=== PATIENT | male | born 1940 | race Caucasian/White ===

== ENCOUNTER 2017-03-16 01:51 | Emergency (ER) | payer MEDICARE ==
[~2017-03-16] VITALS: Ht 177.8 cm; Wt 67.6 kg
[~2017-03-16 01:51] MED LIST: ASP325T PO; ATRV10T PO; BNZ40T PO; CEPH500C PO; CHOL200035 PO; CHOL500014 GT; CIALIS PO; HYDR-34 PO; NEOM28.34 TP; OMEP20CA12 PO; OMG1KC PO; SILD100T PO; TEST1.25 TOP; UBID100C17 PO; UBID30CA13 PO
--- OUTSIDE RECORDS SUMMARY | 2017-03-16 01:57 | XMS REPORT | Continuity of Care Document ---
Author Author [facility] Organization [facility] Address Unknown Phone Unavailable Allergies Medications Problems Procedures Results Encounters ACCT No. Visit Date/Time Discharge Status Pt. Type Provider Facility Loc./Unit Complaint [id number] 04/03/2013 07:30:00 2012 14:04:00 DIS Outpatient [id number] 04/01/2013 12:24:00 2012 23:59:59 CLS Outpatient [id number] 01/02/2013 06:29:00 2012 11:05:00 DIS Outpatient [id number] 12/21/2012 08:03:00 2012 23:59:59 CLS Outpatient
[2017-03-16] MEDS ORDERED: NS IV 500 ML 500 ML IV ONE (02:13)
[2017-03-16 02:21] LABS: BASOPHILS % (AUTO) 0 % (0-10); EOSINOPHILS # (AUTO) 0.2 10^3/uL (0.0-0.3); EOSINOPHILS % (AUTO) 2 % (0-10); LYMPHOCYTES # (AUTO) 0.9 X 10^3 (1.0-4.0); LYMPHOCYTES % (AUTO) 9 % (12-44); MEAN CORPUSCULAR HEMOGLOBIN 33 PG (25-34); MEAN CORPUSCULAR HGB CONC 35 G/DL (32-36); MEAN CORPUSCULAR VOLUME 94 FL (80-99); MEAN PLATELET VOLUME 10.5 FL (7.4-10.4); MONOCYTES # (AUTO) 0.9 X 10^3 (0.0-1.0); MONOCYTES % (AUTO) 9 % (0-12); NEUTROPHILS # (AUTO) 8.2 X 10^3 (1.8-7.8); NEUTROPHILS % (AUTO) 80 % (42-75); PLATELET COUNT 204 10^3/uL (130-400); RED BLOOD COUNT 4.24 10^6/uL (4.35-5.85); RED CELL DISTRIBUTION WIDTH 13.4 % (10.0-14.5); WHITE BLOOD COUNT 10.3 10^3/uL (4.3-11.0)
[2017-03-16 02:41] LABS: ALANINE AMINOTRANSFERASE 32 U/L (0-55); ALBUMIN 4.3 GM/DL (3.2-4.5); ANION GAP 14 MMOL/L (5-14); ASPARTATE AMINO TRANSFERASE 30 U/L (5-34); BILIRUBIN,TOTAL 0.6 MG/DL (0.1-1.0); BLOOD UREA NITROGEN 23 MG/DL (7-18); BUN/CREATININE RATIO 21; CALCIUM 10.1 MG/DL (8.5-10.1); CARBON DIOXIDE 21 MMOL/L (21-32); CHLORIDE 103 MMOL/L (98-107); CREATININE SERUM 1.11 MG/DL (0.60-1.30); GFR ESTIMATED > 60; GLUCOSE 126 MG/DL (70-105); MAGNESIUM 2.4 MG/DL (1.8-2.4); SODIUM 138 MMOL/L (135-145); TOTAL PROTEIN 7.4 GM/DL (6.4-8.2)
[2017-03-16 02:42] LABS: BILIRUBIN,URINE NEGATIVE (NEGATIVE); KETONES,URINE NEGATIVE (NEGATIVE); LEUKOCYTE ESTERASE ,URINE 1+ (NEGATIVE); NITRITE,URINE NEGATIVE (NEGATIVE); PH,URINE 6 (5-9); PROTEIN,URINE 2+ (NEGATIVE); UROBILINOGEN,URINE NORMAL (NORMAL)
[2017-03-16 02:47] LABS: TROPONIN I < 0.30 NG/ML (<0.30)
[2017-03-16 02:50] LABS: SQUAMOUS EPITHELIAL CELL,UR RARE /HPF; WBC,URINE RARE /HPF
--- NOTE | 2017-03-16 02:53 | ED General ---
General Chief Complaint: Dizziness/Syncope Stated Complaint: SWEATING,LEG CRAMPS,LIGHT HEADED Nursing Triage Note: PT AMBULATED TO ROOM. PT STATES HE WOKE UP THIS MORNING TO GO TO THE BR AND FELT NAUSEOUS AND HAD THE CHILLS. Nursing Sepsis Screen: No Definite Risk Source of Information: Patient Exam Limitations: No Limitations History of Present Illness Time Seen by Provider: 01:53 Initial Comments This 68-year-old gentleman presents to the emergency room with complaints of general feeling of illness, leg cramps, chills, diaphoresis, and lightheadedness with near-syncope starting around 23:00. He is now feeling tired and weak. He has had no cough or dysuria. Denies vomiting or diarrhea. He does report having numerous tick bites within the last month. Allergies and Home Medications Allergies Coded Allergies: Codeine (Unverified Allergy, Severe, 06/06/06) acetaminophen (Unverified Allergy, Severe, 06/06/06) Diclofenac (Unverified Adverse Reaction, Unknown, 06/06/06) misoprostol (Unverified Adverse Reaction, Unknown, 06/06/06) Home Medications Aspirin 325 Mg Tab, 325 MG PO DAILY, (Reported) Atorvastatin Calcium 10 Mg Tablet, 10 MG PO DAILY, (Reported) Benazepril Hcl 40 Mg Tablet, 40 MG PO DAILY, (Reported) Cholecalciferol (Vitamin D3) 2,000 Unit Capsule, 2,000 UNIT PO DAILY, (Reported) Doxycycline Hyclate 100 Mg Tablet, 100 MG PO BID, #20 Prescribed by: MARY ANN BALDERAS on 03/16/17 0325 Hydrocodone Bit/Acetaminophen 1 Ea Tablet, 1-2 EA PO Q 4 - 6 HR PRN, (Reported) Omeprazole 20 Mg Capsule.dr, 20 MG PO DAILY, (Reported) Sildenafil Citrate 100 Mg Tablet, 100 MG PO DAILY PRN, (Reported) PRN ED Testosterone 1.25 Gm Gel.packet, 1.25 GM TOP DAILY, (Reported) Ubidecarenone 100 Mg Capsule, 100 MG PO DAILY, (Reported) [Cialis] , 20 MG PO DAILY PRN, (Reported) PRN ED Constitutional: see HPI EENTM: no symptoms reported Respiratory: short of breath (slight) Cardiovascular: see HPI Gastrointestinal: nausea (slight) Genitourinary: no symptoms reported Musculoskeletal: no symptoms reported Skin: no symptoms reported Psychiatric/Neurological: No Symptoms Reported Hematologic/Lymphatic: No Symptoms Reported Past Vashoix-Rjoyku-Paujig Hx Patient Social History Alcohol Use: Denies Use Recreational Drug Use: No Smoking Status: Current Everyday Smoker Type Used: Cigars 2nd Hand Smoke Exposure: No Recent Foreign Travel: No Contact w/Someone Who Travel: No Recent Infectious Disease Expo: No Recent Hopitalizations: No Physical Abuse: No Sexual Abuse: No Immunizations Up To Date Date of Pneumonia Vaccine: Feb 03, 2011 Date of Influenza Vaccine: Mar 25, 2013 Seasonal Allergies Seasonal Allergies: No Surgeries History of Surgeries: Yes Surgeries: Orthopedic (elbow, back, triceps) Respiratory History of Respiratory Disorde: No Cardiovascular History of Cardiac Disorders: Yes Cardiac Disorders: Hypertension Neurological History of Neurological Disord: No Genitourinary History of Genitourinary Disor: No Gastrointestinal History of Gastrointestinal Di: Yes Gastrointestinal Disorders: Hiatal Hernia Musculoskeletal History of Musculoskeletal Dis: Yes Musculoskeletal Disorders: Arthritis Endocrine History of Endocrine Disorders: No HEENT History of HEENT Disorders: No Cancer History of Cancer: No Psychosocial History of Psychiatric Problem: No Suicide Risk Score: 0 Integumentary History of Skin or Integumenta: No Blood Transfusions History of Blood Disorders: Yes Physical Exam Vital Signs Vital Sign - Last 12Hours 03/16/17 01:57 Temp 97.1 Pulse 85 Resp 20 B/P (MAP) 138/77 Pulse Ox 97 O2 Delivery Room Air Capillary Refill : Less Than 3 Seconds General Appearance: No Apparent Distress, WD/WN HEENT: PERRL/EOMI, Normal ENT Inspection, Pharynx Normal Neck: Normal Inspection Respiratory: Lungs Clear, Normal Breath Sounds, No Accessory Muscle Use, No Respiratory Distress Cardiovascular: Regular Rate, Rhythm, No Edema, No Murmur Gastrointestinal: Non Tender, Soft Extremity: Normal Inspection, No Pedal Edema Neurologic/Psychiatric: Alert, Oriented x3, No Motor/Sensory Deficits, Normal Mood/Affect, 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 Norm as Tested Skin: Normal Color, Warm/Dry Progress/Results/Core Measures Results/Orders Lab Results Laboratory Tests Test 03/16/17 02:11 03/16/17 02:37 Range/Units White Blood Count 10.3 4.3-11.0 10^3/uL Red Blood Count 4.24 L 4.35-5.85 10^6/uL Hemoglobin 14.1 13.3-17.7 G/DL Hematocrit 40 40-54 % Mean Corpuscular Volume 94 80-99 FL Mean Corpuscular Hemoglobin 33 25-34 PG Mean Corpuscular Hemoglobin Concent 35 32-36 G/DL Red Cell Distribution Width 13.4 10.0-14.5 % Platelet Count 204 130-400 10^3/uL Mean Platelet Volume 10.5 H 7.4-10.4 FL Neutrophils (%) (Auto) 80 H 42-75 % Lymphocytes (%) (Auto) 9 L 12-44 % Monocytes (%) (Auto) 9 0-12 % Eosinophils (%) (Auto) 2 0-10 % Basophils (%) (Auto) 0 0-10 % Neutrophils # (Auto) 8.2 H 1.8-7.8 X 10^3 Lymphocytes # (Auto) 0.9 L 1.0-4.0 X 10^3 Monocytes # (Auto) 0.9 0.0-1.0 X 10^3 Eosinophils # (Auto) 0.2 0.0-0.3 10^3/uL Basophils # (Auto) 0.0 0.0-0.1 10^3/uL Sodium Level 138 135-145 MMOL/L Potassium Level 4.0 3.6-5.0 MMOL/L Chloride Level 103 98-107 MMOL/L Carbon Dioxide Level 21 21-32 MMOL/L Anion Gap 14 5-14 MMOL/L Blood Urea Nitrogen 23 H 7-18 MG/DL Creatinine 1.11 0.60-1.30 MG/DL Estimat Glomerular Filtration Rate > 60 BUN/Creatinine Ratio 21 Glucose Level 126 H 70-105 MG/DL Calcium Level 10.1 8.5-10.1 MG/DL Magnesium Level 2.4 1.8-2.4 MG/DL Total Bilirubin 0.6 0.1-1.0 MG/DL Aspartate Amino Transf (AST/SGOT) 30 5-34 U/L Alanine Aminotransferase (ALT/SGPT) 32 0-55 U/L Alkaline Phosphatase 75 40-136 U/L Troponin I < 0.30 <0.30 NG/ML Total Protein 7.4 6.4-8.2 GM/DL Albumin 4.3 3.2-4.5 GM/DL Urine Color YELLOW Urine Clarity CLEAR Urine pH 6 5-9 Urine Specific Mcgrady 1.015 L 1.016-1.022 Urine Protein 2+ H NEGATIVE Urine Glucose (UA) NEGATIVE NEGATIVE Urine Ketones NEGATIVE NEGATIVE Urine Nitrite NEGATIVE NEGATIVE Urine Bilirubin NEGATIVE NEGATIVE Urine Urobilinogen NORMAL NORMAL MG/DL Urine Leukocyte Esterase 1+ H NEGATIVE Urine RBC (Auto) 1+ H NEGATIVE Urine RBC RARE /HPF Urine WBC RARE /HPF Urine Squamous Epithelial Cells RARE /HPF Urine Crystals NONE /LPF Urine Bacteria TRACE /HPF Urine Casts PRESENT /LPF Urine Hyaline Casts 2-5 H /LPF Urine Mucus SMALL H /LPF Urine Culture Indicated NO My Orders Orders - MARY ANN POWERS MD Cbc With Automated Diff (03/16/17 01:54) Comprehensive Metabolic Panel (03/16/17 01:54) Magnesium (03/16/17 01:54) Ua Culture If Indicated (03/16/17 01:54) Saline Lock/Iv-Start (03/16/17 01:54) Monitor-Rhythm Ecg Trace Only (03/16/17 01:54) Troponin I (03/16/17 02:13) Chest Pa/Lat (2 View) (03/16/17 02:13) Ekg Tracing (03/16/17 02:13) Ns Iv 500 Ml (Sodium Chloride 0.9%) (03/16/17 02:13) Doxycycline Hyclate Tablet (Vibramycin T (03/16/17 03:30) Medications Given in ED Current Medications Medications Dose Ordered Sig/Teo Route Start Time Stop Time Status Last Admin Dose Admin Doxycycline Hyclate 100 mg ONCE ONCE PO 03/16/17 03:30 03/16/17 03:31 DC 03/16/17 03:31 100 MG Sodium Chloride 500 ml @ 0 mls/hr Q0M ONCE IV 03/16/17 02:13 03/16/17 02:15 DC 03/16/17 02:37 500 MLS/HR Vital Signs/I&O Vital Sign - Last 12Hours 03/16/17 03/16/17 01:57 03:30 Temp 97.1 97.1 Pulse 85 85 Resp 20 20 B/P (MAP) 138/77 Pulse Ox 97 97 O2 Delivery Room Air Room Air Blood Pressure Mean: 97 Progress Note : Progress Note Workup was unremarkable. Patient is feeling better after receiving 500 mL normal saline bolus. Because of the symptoms in the context of numerous tick bites, patient wishes to start doxycycline. He was offered tick panel but declined because of cost. ECG Initial ECG Impression Date: Mar 16, 2017 Initial ECG Impression Time: 02:16 Initial ECG Rate: 76 Initial ECG Rhythm: Normal Sinus Initial ECG Intervals: Normal Initial ECG Impression: Normal Comment Normal sinus rhythm with no ST elevation or depression. No abnormal intervals or axis deviation. Diagnostic Imaging Diagonstic Imaging: Xray Plain Films/CT/US/NM/MRI: chest Comments Chest x-ray viewed by me and report not yet available. No acute abnormalities appreciated. Departure Impression Impression: Primary Impression: Chills Additional Impressions: Diaphoresis Lightheaded Tick bites Qualified Codes: W57.XXXA - Bitten or stung by nonvenomous insect and other nonvenomous arthropods, initial encounter Disposition: HOME, SELF-CARE Condition: Improved Departure-Patient Inst. Decision time for Depature: 03:22 Referrals: EULOGIO LEDBETTER MD (PCP/Family) Primary Care Physician Patient Instructions: NO INSTRUCTIONS GIVEN Add. Discharge Instructions: Drink plenty of clear liquids. Complete your antibiotic as prescribed. Return to care if symptoms worsen. Please note doxycycline may cause sun sensitivity. All discharge instructions reviewed with patient and/or family. Voiced understanding. Scripts Doxycycline Hyclate (Doxycycline Hyclate) 100 Mg Tablet 100 MG PO BID, #20 TAB Prov: MARY ANN POWERS MD 03/16/17 MARY ANN POWERS MD Mar 16, 2017 02:53
[2017-03-16] MEDS ORDERED: DOXY100T2 PO (03:25)
[2017-03-16 03:30] VITALS: BP 138/77
[2017-03-16] MEDS ORDERED: DOXYCYCLINE 100 MG (VIBRAMYCIN) TABLET PO ONE (03:30)
--- NOTE | 2017-03-16 07:23 | Diagnostic Imaging Report ---
INDICATION: Weakness EXAMINATION: Portable chest at 2:47 AM Heart size and pulmonary vascularity are normal. Lungs are clear. There are no effusions or pneumothoraces. IMPRESSION: Negative chest Dictated by: Dictated on workstation # [id number]
== END 2017-03-16 03:30 | disposition home or self-care (01) ==
LOC: EDUNIT# 01:51 → ER 01:53
DX: S80.861A Insect bite (nonvenomous), right lower leg, initial encounter (principal); S80.862A Insect bite (nonvenomous), left lower leg, initial encounter; R68.83 Chills (without fever); R42 Dizziness and giddiness; R61 Generalized hyperhidrosis; I10 Essential (primary) hypertension; F17.290 Nicotine dependence, other tobacco product, uncomplicated; Z79.82 Long term (current) use of aspirin; Z87.19 Personal history of other diseases of the digestive system; W57.XXXA Bitten or stung by nonvenomous insect and other nonvenomous arthropods, initial encounter
CPT/HCPCS: 36415; 71020; 80053; 81000; 83735; 84484; 85025; 93005; 93041

== ENCOUNTER 2017-04-21 16:39 | Day surgery (SDC) | payer MEDICARE ==
[~2017-04-21] VITALS: Ht 177.8 cm; Wt 64.5 kg
[~2017-04-21 16:39] MED LIST changes: +DOXY100T2 PO
[2017-04-21 17:13] LABS: BASOPHILS % (AUTO) 0 % (0-10); EOSINOPHILS % (AUTO) 0 % (0-10); LYMPHOCYTES # (AUTO) 0.8 X 10^3 (1.0-4.0); LYMPHOCYTES % (AUTO) 9 % (12-44); MEAN CORPUSCULAR HEMOGLOBIN 33 PG (25-34); MEAN CORPUSCULAR HGB CONC 34 G/DL (32-36); MEAN CORPUSCULAR VOLUME 95 FL (80-99); MEAN PLATELET VOLUME 10.1 FL (7.4-10.4); MONOCYTES # (AUTO) 0.3 X 10^3 (0.0-1.0); MONOCYTES % (AUTO) 3 % (0-12); NEUTROPHILS # (AUTO) 7.1 X 10^3 (1.8-7.8); NEUTROPHILS % (AUTO) 87 % (42-75); PLATELET COUNT 201 10^3/uL (130-400); RED BLOOD COUNT 4.14 10^6/uL (4.35-5.85); RED CELL DISTRIBUTION WIDTH 13.5 % (10.0-14.5); WHITE BLOOD COUNT 8.2 10^3/uL (4.3-11.0)
--- NOTE | 2017-04-21 17:15 | ED Chest Pain ---
General Stated Complaint: CHEST PAIN Source: patient Exam Limitations: no limitations History of Present Illness Time seen by provider: 17:11 Initial Comments The patient is a 76-year-old white male who presents with a chief complaint of chest pain. He reports that about 1615 he noted the onset of a rather heavy chest pain under the sternum. It did not radiate to the jaw for the shoulder. He has had a previous infarct some years ago. He takes an CHUCK inhibitor for hypertension and atorvastatin for cholesterol. Because of his previous experience he took a 324 aspirin before setting out for here. If I am to understand correctly he has never previously had a coronary angiogram. I believe he had a nuclear scan by his description. 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 He stated that he was up and down 3 times. In addition he cut some limbs to improve the sight lines. 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 Associated Symptoms: denies symptoms Allergies and Home Medications Allergies Coded Allergies: acetaminophen (Unverified Allergy, Severe, 06/06/06) codeine (Unverified Allergy, Severe, 06/06/06) diclofenac (Unverified Adverse Reaction, Unknown, 06/06/06) misoprostol (Unverified Adverse Reaction, Unknown, 06/06/06) Home Medications Aspirin 81 Mg Tablet.dr, 81 MG PO DAILY, (Reported) Atorvastatin Calcium 40 Mg Tablet, 40 MG PO HS for 90 Days, #90 Ref 3 Prescribed by: Stephany CHONG on 04/23/17 1144 Cholecalciferol (Vitamin D3) 2,000 Unit Capsule, 2,000 UNIT PO DAILY, (Reported) Doxycycline Hyclate 100 Mg Tablet, 100 MG PO BID, #20 Prescribed by: MARY ANN BALDERAS on 03/16/17 0325 Hydrocodone Bit/Acetaminophen 1 Ea Tablet, 1-2 EA PO Q 4 - 6 HR PRN, (Reported) Lisinopril 5 Mg Tablet, 5 MG PO DAILY for 90 Days, #90 Ref 3 Prescribed by: Stephany CHONG on 04/23/17 1144 Metoprolol Tartrate 25 Mg Tablet, 25 MG PO BID for 90 Days, #180 Ref 3 Prescribed by: Stephany CHONG on 04/23/17 1144 Omeprazole 20 Mg Capsule.dr, 20 MG PO DAILY, (Reported) Sildenafil Citrate 100 Mg Tablet, 100 MG PO DAILY PRN, (Reported) PRN ED Testosterone 1.25 Gm Gel.packet, 1.25 GM TOP DAILY, (Reported) Ticagrelor 90 Mg Tablet, 90 MG PO BID for 90 Days, #180 Ref 3 Prescribed by: Stephany CHONG on 04/23/17 1144 Ubidecarenone 100 Mg Capsule, 100 MG PO DAILY, (Reported) [Cialis] , 20 MG PO DAILY PRN, (Reported) PRN ED Review of Systems Constitutional: see HPI EENTM: No Symptoms Reported Respiratory: No Symptoms Reported Cardiovascular: See HPI, Chest Pain Gastrointestinal: No Symptoms Reported Genitourinary: No Symptoms Reported Musculoskeletal: no symptoms reported Skin: no symptoms reported Psychiatric/Neurological: No Symptoms Reported Past Kodrjoj-Mjmjvi-Eumojf Hx Patient Social History Type Used: Cigars 2nd Hand Smoke Exposure: No Recent Foreign Travel: No Contact w/Someone Who Travel: No Recent Hopitalizations: No Immunizations Up To Date Date of Pneumonia Vaccine: Feb 03, 2011 Date of Influenza Vaccine: Mar 25, 2013 Seasonal Allergies Seasonal Allergies: No Surgeries History of Surgeries: Yes Surgeries: Orthopedic Respiratory History of Respiratory Disorde: No Cardiovascular History of Cardiac Disorders: Yes Cardiac Disorders: Hypertension Neurological History of Neurological Disord: No Genitourinary History of Genitourinary Disor: No Gastrointestinal History of Gastrointestinal Di: Yes Gastrointestinal Disorders: Hiatal Hernia Musculoskeletal History of Musculoskeletal Dis: Yes Musculoskeletal Disorders: Arthritis Endocrine History of Endocrine Disorders: No HEENT History of HEENT Disorders: No Cancer History of Cancer: No Psychosocial History of Psychiatric Problem: No Integumentary History of Skin or Integumenta: No Blood Transfusions History of Blood Disorders: Yes Physical Exam Vital Signs Capillary Refill : General Appearance: No Apparent Distress, WD/WN HEENT: Normal ENT Inspection Neck: Full Range of Motion, Normal Inspection, Non Tender Respiratory: Chest Non Tender, Lungs Clear, Normal Breath Sounds, No Accessory Muscle Use, No Respiratory Distress Cardiovascular: Regular Rate, Rhythm, No Edema, No Gallop, No JVD, No Murmur, Normal Peripheral Pulses Gastrointestinal: Normal Bowel Sounds, No Organomegaly, No Pulsatile Mass, Non Tender Extremity: Normal Capillary Refill, Normal Inspection, Normal Range of Motion, Non Tender, No Calf Tenderness, No Pedal Edema Neurologic/Psychiatric: Alert, Oriented x3, No Motor/Sensory Deficits, Normal Mood/Affect Skin: Normal Color, Warm/Dry Progress/Results/Core Measures Results/Orders My Orders Orders - TARIQ RODRIGUEZ MD Ekg Tracing (04/21/17 16:52) Cbc With Automated Diff (04/21/17 16:52) Comprehensive Metabolic Panel (04/21/17 16:52) Troponin I (04/21/17 16:52) Chest 1 View, Ap/Pa Only (04/21/17 16:52) Departure Communication (Admissions) Progress Notes Discussed with Dr. Chong who came to the emergency room to interview the patient. Impression Impression: Primary Impression: chest pain consistent with angina pectori Disposition: ADMITTED INPATIENT Condition: Stable/Unchanged Admissions Decision to Admit Reason: Admit from ER (General) Decision to Admit/Date: Apr 21, 2017 Time/Decision to Admit Time: 17:15 Departure-Patient Inst. Referrals: EULOGIO LEDBETTER MD (PCP/Family) Primary Care Physician Scripts Lisinopril (Lisinopril) 5 Mg Tablet 5 MG PO DAILY for 90 Days, #90 TAB 3 Refills Prov: Stephany CHONG MD 04/23/17 Metoprolol Tartrate (Metoprolol Tartrate) 25 Mg Tablet 25 MG PO BID for 90 Days, #180 TAB 3 Refills Prov: Stephany CHONG MD 04/23/17 Atorvastatin Calcium (Lipitor) 40 Mg Tablet 40 MG PO HS for 90 Days, #90 TAB 3 Refills Prov: Stephany CHONG MD 04/23/17 Ticagrelor (Brilinta) 90 Mg Tablet 90 MG PO BID for 90 Days, #180 TAB 3 Refills Prov: Stephany CHONG MD 04/23/17 TARIQ RODRIGUEZ MD Apr 21, 2017 17:15
--- NOTE | 2017-04-21 17:29 | Diagnostic Imaging Report ---
EXAM: CHEST 1 VIEW, AP/PA ONLY INDICATION: Chest pain. COMPARISON: Chest radiograph 03/16/2017. FINDINGS: Normal heart size and pulmonary vascularity. Calcified aorta. No focal pulmonary opacity, pleural effusion or pneumothorax. Osseous structures are unremarkable. No significant change. IMPRESSION: No acute cardiopulmonary findings. Dictated by: Dictated on workstation # [id number]
[2017-04-21 17:30] LABS: ALANINE AMINOTRANSFERASE 32 U/L (0-55); ALBUMIN 4.2 GM/DL (3.2-4.5); ANION GAP 12 MMOL/L (5-14); ASPARTATE AMINO TRANSFERASE 30 U/L (5-34); BILIRUBIN,TOTAL 0.7 MG/DL (0.1-1.0); BLOOD UREA NITROGEN 23 MG/DL (7-18); BUN/CREATININE RATIO 22; CALCIUM 9.7 MG/DL (8.5-10.1); CARBON DIOXIDE 19 MMOL/L (21-32); CHLORIDE 104 MMOL/L (98-107); CREATININE SERUM 1.03 MG/DL (0.60-1.30); GFR ESTIMATED > 60; GLUCOSE 118 MG/DL (70-105); POTASSIUM 4.6 MMOL/L (3.6-5.0); SODIUM 135 MMOL/L (135-145); TOTAL PROTEIN 6.8 GM/DL (6.4-8.2)
[2017-04-21 17:36] LABS: LYMPHOCYTES % (MANUAL) 7 %; NEUTROPHILS % (MANUAL) 87 %; TROPONIN I < 0.30 NG/ML (<0.30)
[2017-04-21 19:16] VITALS: BP 127/97
[2017-04-21] MEDS ORDERED: meTOprolol TARTRATE 25 MG (LOPRESSOR) TABLET PO NR (19:28)
[2017-04-21 19:30] VITALS: BP 137/73
[2017-04-21] MEDS ORDERED: NITROGLYCERIN 0.4 MG SL TABS BTL 25'S SL PRN (19:30)
[2017-04-21 19:45] VITALS: BP 116/86
[2017-04-21] MEDS ORDERED: CATHETER FLUSH 10 ML SYR IV PRN (19:45)
[2017-04-21 20:00] VITALS: BP 133/73
[2017-04-21 20:15] VITALS: BP 153/70
[2017-04-22] VITALS: BP 114/60
[2017-04-22 04:00] VITALS: BP 126/64
[2017-04-22] MEDS ORDERED: INFLUENZA TRIvalent 2017-2018 0.5 ML/45 MCG SYR IM ONE (07:30)
[2017-04-22] MEDS ORDERED: ASPI-586 PO (07:47)
[2017-04-22] MEDS: CATHETER FLUSH 10 ML SYR IV SCH ×4 (07:52→23:45)
[2017-04-22 08:00] VITALS: BP 176/83
[2017-04-22] MEDS ORDERED: ASPIRIN 81 MG CHEW (CHILDREN'S ASA) PO SCH (09:00)
[2017-04-22 10:12] LABS: PROTHROMBIN TIME PATIENT 12.8 SEC (12.2-14.7)
[2017-04-22] MEDS: meTOprolol TARTRATE 25 MG (LOPRESSOR) TABLET PO SCH ×2 (10:34→21:05)
[2017-04-22] MEDS ORDERED: HEParin 1000 UNIT/ML (10ML VIAL) FOR BOLUS ONE (11:47)
[2017-04-22] MEDS ORDERED: MIDAZOLAM 5 MG/5 ML (VERSED) VIAL ONE (11:47)
[2017-04-22] MEDS ORDERED: NS IV 1000 ML 2,000 ML ONE (11:47)
[2017-04-22] MEDS ORDERED: fentaNYL INJECTION 100 MCG/2 ML AMP ONE (11:47)
--- NOTE | 2017-04-22 12:12 | Consultation-Cardiology ---
HPI-Cardiology Cardiology Consultation: Date of Consultation 04/22/17 Date of Admission Attending Physician Emely Zendejas DO Admitting Physician Giacomo Fonseca MD Consulting Physician Stephany CHONG MD HPI: Time Seen by Provider: 09:30 Chief Complaint: chest pain Mr. Lombardo is a 76-year-old gentleman who has history of hypertension, hypercholesterolemia and active smoking. He presents with a prolonged episode of chest pain. Chest pain occurred due to moderate amount of exertion. No radiation. Substernal. No significant exacerbating or relieving factors. no associated cardiac symptoms. Moderate intensity. Pain lasted for over 25 minutes. According to the patient he's had a previous myocardial infarction but does not remember having coronary angiography. Review of Systems-Cardiology Review of Systems Constitutional: No As described under HPI, No no symptoms reported, No chills, No fever, No lightheadedness, No malaise, No tiredness, No weight loss, No weight gain, No other Eyes: No As described under HPI, No no symptoms reported, No blindness, No blurred vision, No contact lenses, No drainage, No decreased acuity, No foreign body sensation, No glasses, No inflammation, No pain, No photophobia, No previous injury, No shadows, No tunnel vision, No other, No vision change Ears/Nose/Throat: No As described under HPI, No no symptoms reported, No chronic hearing loss, No epistaxis, No ear discharge, No ear pain, No loose teeth, No mouth pain, No mouth swelling, No nasal drainage, No nose pain, No recent hearing loss, No throat pain, No throat swelling, No ulcerations, No other Respiratory: No no symptoms reported, No As described under HPI, No cough, No orthopnea, No shortness of breath, No SOB with excertion, No SOB at rest, No stridor, No wheezing, No other Cardiovascular: chest pain Gastrointestinal: No no symptoms reported, No As described under HPI, No abdomen distended, No abdominal pain, No blood streaked bowels, No constipation , No diarrhea, No difficulty swallowing, No nausea, No poor appetite, No poor fluid intake, No rectal bleeding, No vomiting, No other, No nausea/vomiting/ diarrhea, No stool coloration changes Genitourinary: No no symptoms reported, No As described under HPI, No burning, No dysuria, No discharge, No frequency, No flank pain, No hematuria, No incontinence, No pain, No urgency, No other, No urine frequency changes, No urine coloration changes Musculoskeletal: No no symptoms reported, No As describe under HPI, No back pain, No gout, No joint pain, No joint swelling, No muscle pain, No muscle stiffness, No neck pain, No other Skin: No no symptoms reported, No As described under HPI, No change in color, No change in hair/nails, No dryness, No lesions, No lumps, No rash, No other, No skin related problems, No ulcerations, No rash on exposed areas, No ulcerations on exposed areas Psychiatric/Neurological: No no symptoms reported, No As described under HPI, No anxiety, No depression, No emotional problems, No headache, No numbness, No pre-existing deficit, No seizure, No tingling, No tremors, No weakness, No other , No focal weakness, No syncope Hematologic: No no symptoms reported, No As described under HPI, No anemia, No blood clots, No easy bleeding, No easy bruising, No swollen glands, No other, No bleeding abnormalities DKI-Ogrbpp-Aetkgm Hx Patient Social History Alcohol Use: Occasionally Uses Recreational Drug Use: No Smoking Status: Light Tobacco Smoker Type Used: Cigars 2nd Hand Smoke Exposure: No Recent Foreign Travel: No Recent Infectious Disease Expo: No Hospitalization with Isolation: Denies Physical Abuse Screen: No Sexual Abuse: No Immunizations Up To Date Date of Pneumonia Vaccine: Feb 03, 2011 Date of Influenza Vaccine: Mar 25, 2013 Past Medical History PMH As described under Assessment. Family Medical History Family History: Cardiovascular disease 19 MOTHER (chf) Hypertension 19 MOTHER Neoplasm 19 FATHER (intersticial lung disease) 19 MOTHER (thyroid ca) Psychosocial problem G8 BROTHER (schizophrenia) Allergies and Home Medications Allergies Coded Allergies: acetaminophen (Unverified Allergy, Severe, 06/06/06) codeine (Unverified Allergy, Severe, 06/06/06) diclofenac (Unverified Adverse Reaction, Unknown, 06/06/06) misoprostol (Unverified Adverse Reaction, Unknown, 06/06/06) Home Medications Aspirin 81 Mg Tablet.dr, 81 MG PO DAILY, (Reported) Atorvastatin Calcium 10 Mg Tablet, 10 MG PO DAILY, (Reported) Benazepril Hcl 40 Mg Tablet, 40 MG PO DAILY, (Reported) Cholecalciferol (Vitamin D3) 2,000 Unit Capsule, 2,000 UNIT PO DAILY, (Reported) Doxycycline Hyclate 100 Mg Tablet, 100 MG PO BID, #20 Prescribed by: MARY ANN BALDERAS on 03/16/17 0325 Hydrocodone Bit/Acetaminophen 1 Ea Tablet, 1-2 EA PO Q 4 - 6 HR PRN, (Reported) Omeprazole 20 Mg Capsule.dr, 20 MG PO DAILY, (Reported) Sildenafil Citrate 100 Mg Tablet, 100 MG PO DAILY PRN, (Reported) PRN ED Testosterone 1.25 Gm Gel.packet, 1.25 GM TOP DAILY, (Reported) Ubidecarenone 100 Mg Capsule, 100 MG PO DAILY, (Reported) [Cialis] , 20 MG PO DAILY PRN, (Reported) PRN ED Physical Exam-Cardiology Physical Exam Vital Signs/I&O Vital Sign - Last 12Hours 04/22/17 04/22/17 04/22/17 04/22/17 01:00 04:00 04:00 07:00 Temp 96.6 Pulse 58 60 55 Resp 20 B/P (MAP) 126/64 Pulse Ox 97 97 O2 Delivery Room Air Room Air 04/22/17 04/22/17 04/22/17 07:56 08:00 09:00 Temp 98.2 Pulse 59 Resp 18 B/P (MAP) 176/83 Pulse Ox 98 98 97 O2 Delivery Room Air Room Air Room Air Capillary Refill : Less Than 3 Seconds Constitutional: No appears stated age, No AAO x 3, No apparent distress, No PERRL, No well-developed, No well-nourished, No other HEENT: No PERRL, No normal ENT inspection, No TMs normal, No pharynx normal, No scleral icterus (R), No scleral icterus (L), No pale conjunctivae (R), No pale conjunctivae (L), No photophobia, No TM abnormal (R), No TM abnormal (L), No pharyngeal erythema, No tonsillar exudate, No other, No discharge, No EOMI, No hearing is well preserved, No hard of hearing, No oral hygience is good, No ulceration, No xanthelasmas are seen Neck: No non-tender, No full range of motion, No supple, No normal inspection, No carotid bruit, No limited range of motion, No lymphadenopathy (R), No lymphadenopathy (L), No tender lateral, No tender midline, No thyromegaly, No other, No carotid pulses are 2 + bilaterally, No with good upstrokes Respiratory: No accessory muscle use, No respiratory distress, No chest tender , No chest expansion is symmetric, No chest is bilaterally symmetric, No lungs clear to percussion, No lungs clear to auscultation, No crackles, No rhonchi, No rales, No stridor, No wheezing, No pleural rub, No other Cardiovascular: No regular rate-rhythm, No irregularly irregular, No extra beats, No parasternal heave is noted, No JVD, No edema, No bradycardia, No tachycardia, No point of maximal impulse, No cardiac thrills are palpable, No S1 and S2, No gallop/S3, No gallop/S4, No diastolic murmur, No systolic murmur, No friction rub, No click, No other Gastrointestinal: No tender, No soft, No round, No distended, No pulsatile mass , No organomegaly, No guarding, No rebound, No tenderness, No hernia, No mass, No audible bowel sounds, No abnormal bowel sounds, No abdominal bruits, No spleenomegaly, No other Rectal: deferred Extremities: No normal range of motion, No non-tender, No normal inspection, No pedal edema, No calf tenderness, No normal capillary refill, No pelvis stable , No calf tenderness, No inflammation, No pedal edema, No slow capillary refill , No swelling, No other, No abrasion, No clubbing, No cyanosis, No ecchymosis, No laceration, No no lower extremity edema bilateral, No significant edema, No tenderness, No wound Neurologic/Psychiatric: No glue mounter operator II-XII nml as tested, No no motor/sensory deficits, No alert, No normal mood/affect, No oriented x 3, No abnormal cerebellar tests, No abnormal glue mounter operator II-XII, No abnormal gait, No aphasia, No EOM palsy, No facial droop, No motor weakness, No sensory deficit, No depressed affect, No disoriented x 3, No other, No grossly intact, No power is 5/5 both on sides Skin: No normal color, No warm/dry, No cyanosis, No cool, No diaphoresis, No damp, No ecchymosis, No jaundice, No mottled, No pallor, No rash, No tattoos/ piercings, No ulcerations, No rash on exposed areas, No ulcerations on exposed areas, No other Data Review Labs Laboratory Tests 04/21/17 17:05: White Blood Count 8.2, Red Blood Count 4.14L, Hemoglobin 13.6, Hematocrit 40, Mean Corpuscular Volume 95, Mean Corpuscular Hemoglobin 33, Mean Corpuscular Hemoglobin Concent 34, Red Cell Distribution Width 13.5, Platelet Count 201, Mean Platelet Volume 10.1, Neutrophils (%) (Auto) 87H, Lymphocytes (%) (Auto) 9L , Monocytes (%) (Auto) 3, Eosinophils (%) (Auto) 0, Basophils (%) (Auto) 0, Neutrophils # (Auto) 7.1, Lymphocytes # (Auto) 0.8L, Monocytes # (Auto) 0.3, Eosinophils # (Auto) 0.0, Basophils # (Auto) 0.0, Neutrophils % (Manual) 87, Lymphocytes % (Manual) 7, Monocytes % (Manual) 6, Polychromasia , Blood Morphology Comment NORMAL, Sodium Level 135, Potassium Level 4.6, Chloride Level 104, Carbon Dioxide Level 19L, Anion Gap 12, Blood Urea Nitrogen 23H, Creatinine 1.03, Estimat Glomerular Filtration Rate > 60, BUN/Creatinine Ratio 22, Glucose Level 118H, Calcium Level 9.7, Total Bilirubin 0.7, Aspartate Amino Transf (AST/SGOT) 30, Alanine Aminotransferase (ALT/SGPT) 32, Alkaline Phosphatase 63, Troponin I < 0.30, Total Protein 6.8, Albumin 4.2 04/21/17 23:19: Troponin I < 0.30 04/22/17 09:56: Prothrombin Time 12.8, INR Comment 1.0 ECG Impression ECG Initial ECG Rhythm: Normal Sinus Initial ECG Impression: Normal A/P-Cardiology Assessment/Admission Diagnosis unstable angina, previous history of CAD, active smoking, hyperlipidemia, hypertension. Plan unstable angina: The patient had a prolonged episode of chest pain with previous history of RI and significant CAD risk factors including active smoking , hypertension and hyperlipidemia. Coronary angiography is recommended. Aspirin, Plavix. active smoking: Strongly recommended to quit. hyperlipidemia: Continue statin therapy. Hypertension: Continue CHUCK inhibitor and beta cruz. Thank you for your consultation. Please call me if you have any questions. Laron Chong MD, FACP, FACC, FSCAI, FHRS, CCDS Interventional Cardiology Cardiac Electrophysiology Vascular Medicine and Endovascular Interventions Clinical Quality Measures AMI/AHF: ASA po Prior to arrival: Yes DVT/VTE Risk/Contraindication: Risk Factor Score Per Nursin RFS Level Per Nursing on Admit: 3=High Stephany CHONG MD Apr 22, 2017 12:12 pm
[2017-04-22] MEDS ORDERED: VERAPAMIL 5 MG/2 ML (CALAN) VIAL IV ONE (12:14)
[2017-04-22] MEDS ORDERED: NS IV 1000 ML 1,000 ML ONE (12:15)
[2017-04-22] MEDS ORDERED: NITROGLYCERIN DRIP 25 MG/D5W 250 ML IV ONE (12:15)
[2017-04-22] MEDS ORDERED: TICAGRELOR 90 MG TABLET (BRILINTA) PO ONE (13:03)
--- NOTE | 2017-04-22 13:38 | Cardiac Procedure Note-CS/ASA ---
Pre-Procedure Note Pre-Op Procedure Note H&P Reviewed The H&P was reviewed, patient examined and no changes noted. Date H&P Reviewed: Apr 22, 2017 Time H&P Reviewed: 12:30 Conscious Sedation Pre-Proced Time Reviewed: 12:30 ASA Class: 3 Airway Mallampati Classification: ([place] appropriate class) I. II. III, IV Lungs Heart ASA score ASA 1: a normal healthy patient ASA 2: a patient with a mild systemic disease (mid diabetes, controlled hypertension, obesity ASA 3: a patient with a severe systemic disease that limits activity (angina , COPD, prior Myocardial infarction) ASA 4: a patient with an incapacitating disease that is a constant threat to life (CHF, renal failure) ASA 5: a moribund patient not expected to survive 24 hrs. (ruptured aneurysm) ASA 6: a declared brain patient whose organs are being harvested. For emergent operations, add the letter E after the classification Grade 1 Sedation Plan: Analgesia, Amnesia, Plan communicated to team members, Discussed options with patient/fam, Discussed risks with patient/fam Note The patient is an appropriate candidate to undergo the planned procedure, sedation, and anesthesia. The patient immediately re-assessed prior to indication. Stephany JACKSON MD Apr 22, 2017 1:38 pm
--- NOTE | 2017-04-22 13:40 | Cardiology Post Procedure Note ---
Post-Procedure Note Physician (s)/Winterizer (s) Physician Stephany JACKSON MD Pre-Procedure Diagnosis Pre-Procedure Diagnosis: unstable angina Post-Procedure Note Procedure Start Date: Apr 22, 2017 Procedure Start Time: 12:40 Name of Procedure: coronary angiography, left heart catheterization, PCI to mid RCA with drug-eluting stent. Findings/Procedure Note mild mid left circumflex artery stenosis. No significant disease in the LAD. However slow flow noted which improved significantly with 50 g of intracoronary nitroglycerin. severe mid RCA stenosis. Stenosis severity 90 percent. Treated successfully with 2.85d58pi drug-eluting stent. Normal LV function with LVEDP 14 mmHg. Anesthesia Type: Conscious Sedation Estimated blood loss (mL): 10 Contrast Amount: 110 Post-Procedure Diagnosis Post-operative diagnosis: unstable angina, successful PCI to the mid RCA with drug-eluting stent. Stephany JACKSON MD Apr 22, 2017 1:40 pm
[2017-04-22] MEDS ORDERED: PATIENT MAY USE OWN MEDS, ALL PO SCH (13:45)
[2017-04-22] MEDS: NS IV 1000 ML 1,000 ML IV SCH ×2 (13:45→23:40)
[2017-04-22 16:00] VITALS: BP 116/78
[2017-04-22 20:00] VITALS: BP 126/66
[2017-04-22] MEDS ORDERED: ATORVASTATIN 40 MG (LIPITOR) TABLET PO SCH (21:00)
[2017-04-22] MEDS: TICAGRELOR 90 MG TABLET (BRILINTA) PO SCH (21:05)
[2017-04-23] VITALS: BP 109/49
[2017-04-23 04:00] VITALS: BP 119/62
[2017-04-23 04:59] LABS: MEAN PLATELET VOLUME 10.1 FL (7.4-10.4); RED BLOOD COUNT 4.01 10^6/uL (4.35-5.85); RED CELL DISTRIBUTION WIDTH 13.8 % (10.0-14.5); WHITE BLOOD COUNT 6.1 10^3/uL (4.3-11.0)
[2017-04-23 05:16] LABS: ANION GAP 11 MMOL/L (5-14); BLOOD UREA NITROGEN 18 MG/DL (7-18); BUN/CREATININE RATIO 23; CALCIUM 9.1 MG/DL (8.5-10.1); CARBON DIOXIDE 21 MMOL/L (21-32); CHLORIDE 108 MMOL/L (98-107); GFR ESTIMATED > 60; GLUCOSE 87 MG/DL (70-105); POTASSIUM 3.9 MMOL/L (3.6-5.0); SODIUM 140 MMOL/L (135-145)
[2017-04-23] MEDS: CATHETER FLUSH 10 ML SYR IV SCH (06:56)
[2017-04-23 08:29] VITALS: BP 128/71
[2017-04-23] MEDS ORDERED: ASPIRIN E.C. 81 MG (ECOTRIN) TAB PO SCH (09:00)
[2017-04-23] MEDS ORDERED: lisINopril 5 MG (PRINIVIL) TABLET PO SCH (09:00)
[2017-04-23] MEDS: meTOprolol TARTRATE 25 MG (LOPRESSOR) TABLET PO SCH (09:48)
[2017-04-23] MEDS: TICAGRELOR 90 MG TABLET (BRILINTA) PO SCH (09:48)
[2017-04-23] MEDS: NS IV 1000 ML 1,000 ML IV SCH (10:29)
--- NOTE | 2017-04-23 11:29 | CARDIAC CATHETERIZATION ---
DATE OF SERVICE: 04/22/2017 CORONARY ANGIOGRAPHY AND PCI PERFORMING PHYSICIAN: Dr. Laron Chong. INDICATION: Unstable angina with significant coronary artery disease risk factors. PREOPERATIVE DIAGNOSIS: Unstable angina with significant coronary artery disease risk factors. POSTOPERATIVE DIAGNOSIS: Unstable angina, successful percutaneous coronary intervention to severe mid right coronary artery stenosis with drug-eluting stent. HISTORY: The patient is a 76-year-old gentleman who has history of active smoking, hypertension and hyperlipidemia. He also has old history of myocardial infarction. He presented with a prolonged episode of chest pain. Two sets of troponin were negative. EKG did not reveal any significant ST deviation. Urgent coronary angiography was recommended. PROCEDURES PERFORMED: 1. Coronary angiography. 2. Left heart catheterization. 3. PCI to mid RCA with drug-eluting stent. COMPLICATIONS: None. SPECIMENS: None. ESTIMATED BLOOD LOSS: 10 mL. ANESTHESIA: Conscious sedation. ANTICOAGULATION: IV heparin. CONTRAST: 110 mL of Omnipaque. FLUOROSCOPY TIME; 11 minutes. FLUOROSCOPY DOSE: 592 milligrays. PROCEDURE DETAILS: The patient was brought to the oil field laborer after informed consent was taken. All the risks and complications were explained in detail. He was draped and prepped in the usual sterile fashion. Access was gained in the right radial artery with a 6-[place] sheath. Left coronary angiography and left heart catheterization was performed with the Jonathan catheter. RCA was engaged with a JR4 catheter. FINDINGS: 1. Left heart catheterization. LV pressure 100/1 mmHg. LVEDP 14 mmHg. Aortic pressure 91/48 mmHg. No gradient across the aortic valve. Normal LVEF with no wall motion abnormalities. 2. Left main: Patent. 3. Left circumflex artery. Mild ostial disease 20% to 30% stenosis. Mild disease in the distal segment, which is about 30 to 40%. 4. LAD has mild diffuse disease in the proximal segment. Slow flow is noted in both the LAD and the left circumflex artery. Significant improvement after 50 mcg of intracoronary nitroglycerin was given. 5. RCA has mild to moderate ostial disease, 30% to 40% stenosis. There is a tight mid RCA stenosis. Stenosis severity 90%. RECOMMENDATION: PCI to mid RCA is recommended. PCI DETAILS: A JR4 guide catheter with side holds, a whisper medium support guidewire and IV heparin. ACT during the procedure was over 200 seconds. Brilinta 180 mg was given before the procedure was started. The lesion was crossed with a Whisper guidewire. We then took a Xience Alpine 2.75 x 15 drug-eluting stent and placed it across the lesion at 18 atmospheres for 73 seconds. We then took an NC Quantum 3.5 x 15 noncompliant balloon and did inflation at 16 atmospheres for 68 seconds. Post results were excellent with no residual stenosis. CHRISTIANA 3 flow. The wire was taken out and post-angiogram showed no vascular complication. The patient tolerated the procedure well and did not have any complication. IMPRESSION AND CONCLUSION: Unstable angina, successful PCI to severe stenosis in the mid RCA with a drug-eluting stent. PLAN: 1. Aspirin, Brilinta for at least a year. We will continue beta cruz, CHUCK inhibitor and start statin therapy. 2. Smoking cessation was strongly recommended. Job ID: [id number] DocumentID: [id number] Dictated Date: 04/22/2017 13:50:49 [employer] Defense Incident Responder Date: 04/22/2017 16:49:35 Dictated By: JOE CHONG MD
[2017-04-23 11:38] VITALS: BP 158/85
[2017-04-23] MEDS ORDERED: LISI-556 PO (11:44)
[2017-04-23] MEDS ORDERED: METO-333 PO (11:44)
[2017-04-23] MEDS ORDERED: TICA90TA PO (11:44)
[2017-04-23] MEDS ORDERED: ATOR40TA PO (11:44)
--- NOTE | 2017-04-23 11:45 | Discharge Inst-Post CATH ---
Discharge Inst-CATH Post Cardiac Cath D/C Inst Follow Up/Plan Follow-up per Dr. Chong in 10 days CARDIAC CATH DISCHARGE INSTRUCTIONS *Hold Metformin for 48 hours post heart cath. ACTIVITY * Go Home directly and rest. * Limit activity of the leg (or wrist if it was used) for 7 days including aerobics, swimming, jogging, bicycling, etc. * Restrict stair-climbing for 7 days if possible, if not, climb up with your non -cath leg, then bring together on the same step. * Avoid lifting, pushing, pulling or excessive movement of the affected extremity for 7 days. * Customary sexual activity may be resumed after 2 days-use caution not to use a position that strains or causes pain to the affected extremity. * No driving for 24 hours. * NO SMOKING. * Avoid straining for bowel movements for 7 days. * Gentle walking on level ground is allowed. * Returning to work will depend on the type of procedure and the results. Your doctor will discuss this with you. CALL YOUR DOCTOR FOR ANY OF THE FOLLOWING: *If bleeding from the puncture site occurs- Apply gentle pressure to site with clean cloth and call your doctor or EMS. * If a knot or lump forms under the skin, increases in size, or causes pain. * If bruising appears to be worsening or moving further down your leg instead of disappearing. * Temperature above 101 F. CARE OF YOUR GROIN INCISION; * Bruising or purple discoloration of the skin near the puncture site is common. * You may shower only, no bathtub bathing for 5 days. Be careful to avoid slipping as your leg may feel stiff. * If a closure device was used on your femoral artery, please see the attached guide regarding care of the device and your leg. * REMOVE the dressing from your groin the next day after your procedure in the shower. CARE OF YOUR WRIST INCISION; * Bruising or purple discoloration of the skin near the puncture site is common. * You may shower. * DO NOT submerge wrist. * Remove dressing in 24 hours. Stephany CHONG MD Apr 23, 2017 11:45 am
--- NOTE | 2017-04-23 11:47 | Cardiology Discharge Summary ---
Diagnosis/Chief Complaint Date of Admission Apr 21, 2017 at 6:00 pm Date of Discharge 04/23/2017 Admission Diagnosis Unstable angina Final/Discharge Diagnosis Unstable angina, PCI to mid RCA Chief Complaint/HPI Chief Complaint/HPI Mr. Lombardo is a 76-year-old gentleman who has history of hypertension, hypercholesterolemia and active smoking. He presents with a prolonged episode of chest pain. Chest pain occurred due to moderate amount of exertion. No radiation. Substernal. No significant exacerbating or relieving factors. no associated cardiac symptoms. Moderate intensity. Pain lasted for over 25 minutes. According to the patient he's had a previous myocardial infarction but does not remember having coronary angiography. Discharge Summary Procedures PCI with drug-eluting stent to proximal/mid RCA. Discharge Physical Examination Normal cardiac and respiratory exam. Normal radial pulse. Hospital Course Stable Pending Labs Laboratory Tests 04/23/17 04:34: White Blood Count 6.1, Red Blood Count 4.01, Hemoglobin 13.2, Hematocrit 39, Mean Corpuscular Volume 97, Mean Corpuscular Hemoglobin 33, Mean Corpuscular Hemoglobin Concent 34, Red Cell Distribution Width 13.8, Platelet Count 170, Mean Platelet Volume 10.1, Sodium Level 140, Potassium Level 3.9, Chloride Level 108, Carbon Dioxide Level 21, Anion Gap 11, Blood Urea Nitrogen 18, Creatinine 0.80, Estimat Glomerular Filtration Rate > 60, BUN/Creatinine Ratio 23, Glucose Level 87, Calcium Level 9.1 Discussion & Recommendations Discussion Discharge took over 30 minutes to complete. Discussed at length with the patient and about the procedure yesterday and discharge planning. Follow up appt.: With Dr. Chong in 10-14 days. Dicharge Diet: Cardiac Diet Activity as Tolerated: Yes Home Medications Reviewed patient Home Medication Reconciliation Form Discharge Home Medications: Reviewed and agree with Discharge Medication list on patient's Discharge Instruction sheet Condition at discharge Stable Instructions to patient/family Follow-up per Dr. Chong in 10 days Clinical Quality Measures AMI/AHF: ASA po Prior to arrival: Yes DVT/VTE Risk/Contraindication: Risk Factor Score Per Nursin RFS Level Per Nursing on Admit: 3=High Stephany CHONG MD Apr 23, 2017 11:47 am
[2017-04-23 13:40] VITALS: BP 158/85
== END 2017-04-23 13:45 | disposition home or self-care (01) ==
LOC: EDUNIT# 16:39 → ER 16:40 → UNDOADMOB 18:00 → ICU 18:00 → CATH 18:00 → ICU 18:00 → CATH 04-23 13:45 → UNDODISOB 04-23 13:45
PROVIDERS: ATTEND Internal Medicine
DX: I25.110 Atherosclerotic heart disease of native coronary artery with unstable angina pectoris (principal); I10 Essential (primary) hypertension; E78.5 Hyperlipidemia, unspecified; E78.00 Pure hypercholesterolemia, unspecified; Z88.6 Allergy status to analgesic agent; Z88.8 Allergy status to other drugs, medicaments and biological substances; Z79.82 Long term (current) use of aspirin; Z79.899 Other long term (current) drug therapy
CPT/HCPCS: 36415; 71010; 80048; 80053; 84484; 85007; 85027; 85610; 92928; 93005; 93306; 93458

== ENCOUNTER 2018-11-17 17:12 | Emergency (ER) | payer MEDICARE ==
[~2018-11-17] VITALS: Ht 175.3 cm; Wt 68.0 kg
[~2018-11-17 17:12] MED LIST changes: +ASPI-586 PO; +ATOR40TA PO; +LISI-556 PO; +METO-333 PO; +TICA90TA PO
--- OUTSIDE RECORDS SUMMARY | 2018-11-17 17:28 | XMS REPORT | Continuity of Care Document ---
Author Organization Unknown Address Unknown Allergies Active Description Code Type Severity Reaction Onset Reported/Identified Relationship to Patient Clinical Status Yes acetaminophen [id number] Drug Allergy Severe N/A 06/06/2006 Yes codeine [id number] Drug Allergy Severe N/A 06/06/2006 Yes diclofenac [id number] Drug Allergy Unknown N/A 06/06/2006 Yes misoprostol [id number] Drug Allergy Unknown N/A 06/06/2006 Medications There is no data. 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 04/03/2013 BARBIE SMITH MD Ot 840.8 SPRAIN SHOULDER/ARM NEC 04/03/2013 BARBIE SMITH MD Ot E000.8 OTHER EXTERNAL CAUSE STATUS 04/03/2013 BARBIE SMITH MD Ot E888.9 FALL NOS 04/03/2013 BARBIE SMITH MD Ot V58.69 OTH MED,LT,CURRENT USE 03/16/2017 MARY ANN POWERS MD Ot F17.290 NICOTINE DEPENDENCE, OTHER TOBACCO PRODU 03/16/2017 MARY ANN POWERS MD Ot I10 ESSENTIAL (PRIMARY) HYPERTENSION 03/16/2017 MARY ANN POWERS MD Ot R42 DIZZINESS AND GIDDINESS 03/16/2017 MARY ANN POWERS MD Ot R61 GENERALIZED HYPERHIDROSIS 03/16/2017 MARY ANN POWERS MD Ot R68.83 CHILLS (WITHOUT FEVER) 03/16/2017 MARY ANN POWERS MD Ot S80.861A INSECT BITE (NONVENOMOUS), RIGHT LOWER L 03/16/2017 MARY ANN POWERS MD, Ot S80.862A INSECT BITE (NONVENOMOUS), LEFT LOWER LE 03/16/2017 MARY ANN POWERS MD Ot W57.XXXA BIT/STUNG BY NONVENOM INSECT OTH NONVE 03/16/2017 MARY ANN POWERS MD Ot Z79.82 COLLECTIONS PROFESSIONAL (CURRENT) USE OF ASPIRIN 03/16/2017 MARY ANN POWERS MD, Ot Z87.19 PERSONAL HISTORY OF OTHER DISEASES OF TH 03/20/2017 MARY ANN POWERS MD Ot F17.290 NICOTINE DEPENDENCE, OTHER TOBACCO PRODU 03/20/2017 MARY ANN POWRES MD, Ot I10 ESSENTIAL (PRIMARY) HYPERTENSION 03/20/2017 MARY ANN POWERS MD, Ot R42 DIZZINESS AND GIDDINESS 03/20/2017 MARY ANN POWERS MD, Ot R61 GENERALIZED HYPERHIDROSIS 03/20/2017 MARY ANN POWERS MD Ot R68.83 CHILLS (WITHOUT FEVER) 03/20/2017 MARY ANN POWERS MD Ot S80.861A INSECT BITE (NONVENOMOUS), RIGHT LOWER L 03/20/2017 MARY ANN POWERS MD Ot S80.862A INSECT BITE (NONVENOMOUS), LEFT LOWER LE 03/20/2017 MARY ANN POWERS MD, Ot W57.XXXA BIT/STUNG BY NONVENOM INSECT OTH NONVE 03/20/2017 MARY ANN POWERS MD, Ot Z79.82 COLLECTIONS PROFESSIONAL (CURRENT) USE OF ASPIRIN 03/20/2017 MARY ANN POWERS MD Ot Z87.19 PERSONAL HISTORY OF OTHER DISEASES OF TH 04/23/2017 CORRINE SAVAGE DO Ot E78.00 PURE HYPERCHOLESTEROLEMIA, UNSPECIFIED 04/23/2017 АЛЕКСАНДР SAVAGE DOI Ot E78.5 HYPERLIPIDEMIA, UNSPECIFIED 04/23/2017 CORRINE SAVAGE DO Ot I10 ESSENTIAL (PRIMARY) HYPERTENSION 04/23/2017 CORRINE SAVAGE DO Ot I25.110 ATHSCL HEART DISEASE OF [place] ART W 04/23/2017 CORRINE SAVAGE DO Ot Z79.82 DETENTION (CURRENT) USE OF ASPIRIN 04/23/2017 JANETTE LUTZ CORRINE Ot Z79.899 OTHER COLLECTIONS PROFESSIONAL (CURRENT) DRUG THERAPY 04/23/2017 АЛЕКСАНДР SAVAGE DOI Ot Z88.6 ALLERGY STATUS TO ANALGESIC AGENT STATUS 04/23/2017 JANETTE LUTZ CORRINE Ot Z88.8 ALLERGY STATUS TO OTH DRUG/MEDS/BIOL SUB 05/17/2017 JANETTE LUTZ CORRINE Ot E78.00 PURE HYPERCHOLESTEROLEMIA, UNSPECIFIED 05/17/2017 АЛЕКСАНДР SAVAGE DOI Ot E78.5 HYPERLIPIDEMIA, UNSPECIFIED 05/17/2017 JANETTE DO CORRINE Ot I10 ESSENTIAL (PRIMARY) HYPERTENSION 05/17/2017 JANETTE LUTZ CORRINE Ot I25.110 ATHSCL HEART DISEASE OF [place] ART W 05/17/2017 JANETTE LUTZ CORRINE Ot Z79.82 DETENTION (CURRENT) USE OF ASPIRIN 05/17/2017 JANETTE LUTZ CORRINE Ot Z79.899 OTHER DETENTION (CURRENT) DRUG THERAPY 05/17/2017 АЛЕКСАНДР SAVAGE DOI Ot Z88.6 ALLERGY STATUS TO ANALGESIC AGENT STATUS 05/17/2017 JANETTE LUTZ CORRINE Ot Z88.8 ALLERGY STATUS TO OTH DRUG/MEDS/BIOL SUB 07/11/2017 JANETTE LUTZ CORRINE Ot E78.00 PURE HYPERCHOLESTEROLEMIA, UNSPECIFIED 07/11/2017 JANETTE LUTZ CORRINE Ot E78.5 HYPERLIPIDEMIA, UNSPECIFIED 07/11/2017 JANETTE LUTZ CORRINE Ot I10 ESSENTIAL (PRIMARY) HYPERTENSION 07/11/2017 JANETTE LUTZ CORRINE Ot I25.110 ATHSCL HEART DISEASE OF [place] ART W 07/11/2017 JANETTE LUTZ CORRINE Ot Z79.82 COLLECTIONS PROFESSIONAL (CURRENT) USE OF ASPIRIN 07/11/2017 JANETTE LUTZ CORRINE Ot Z79.899 OTHER DETENTION (CURRENT) DRUG THERAPY 07/11/2017 АЛЕКСАНДР SAVAGE DOI Ot Z88.6 ALLERGY STATUS TO ANALGESIC AGENT STATUS 07/11/2017 АЛЕКСАНДР SAVAGE DOI Ot Z88.8 ALLERGY STATUS TO OTH DRUG/MEDS/BIOL SUB 09/21/2018 LUIS SMITH, BARBIE Mcgrath Ot 715.96 OSTEOARTHROS NOS-L/LEG 09/21/2018 LUIS SMITH, BARBIE Mcgrath Ot 841.9 SPRAIN ELBOW/FOREARM NOS 09/21/2018 BARBIE SMITH MD, Ot E000.8 OTHER EXTERNAL CAUSE STATUS 09/21/2018 BARBIE SMITH MD Ot E849.[address] NEC 09/21/2018 BARBIE SMITH MD Ot E888.9 FALL NOS 09/21/2018 BARBIE SMITH MD, Ot V72.81 ZTVT-DYH-OQUGOIXCY CARDIOVASCULAR 09/21/2018 BARBEI SMITH MD, Ot V74.8 SCREEN-BACTERIAL DIS NEC 09/26/2018 EULOGIO LEDBETTER MD Ot R29.6 REPEATED FALLS 10/25/2018 EULOGIO LEDBETTER MD Ot R29.6 REPEATED FALLS 11/01/2018 EULOGIO LEDBETTER MD, Ot R29.6 REPEATED FALLS Procedures There is no data. Results Test Result Range Complete blood count (CBC) with automated white blood cell (WBC) differential - 03/16/17 02:11 Blood leukocytes automated count (number/volume) 10.3 10*3/uL 4.3-11.0 Blood erythrocytes automated count (number/volume) 4.24 10*6/uL 4.35-5.85 Venous blood hemoglobin measurement (mass/volume) 14.1 g/dL 13.3-17.7 Blood hematocrit (volume fraction) 40 % 40-54 Automated erythrocyte mean corpuscular volume 94 [foz_us] 80-99 Automated erythrocyte mean corpuscular hemoglobin (mass per erythrocyte) 33 pg 25-34 Automated erythrocyte mean corpuscular hemoglobin concentration measurement (mass/volume) 35 g/dL 32-36 Automated erythrocyte distribution width ratio 13.4 % 10.0- 14.5 Automated blood platelet count (count/volume) 204 10*3/uL 130-400 Automated blood platelet mean volume measurement 10.5 [foz_us] 7.4-10.4 Automated blood neutrophils/100 leukocytes 80 % 42-75 Automated blood lymphocytes/100 leukocytes 9 % 12-44 Blood monocytes/100 leukocytes 9 % 0-12 Automated blood eosinophils/100 leukocytes 2 % 0-10 Automated blood basophils/100 leukocytes 0 % 0-10 Blood neutrophils automated count (number/volume) 8.2 10*3 1.8-7.8 Blood lymphocytes automated count (number/volume) 0.9 10*3 1.0-4.0 Blood monocytes automated count (number/volume) 0.9 10*3 0.0- 1.0 Automated eosinophil count 0.2 10*3/uL 0.0-0.3 Automated blood basophil count (count/volume) 0.0 10*3/uL 0.0-0.1 Comprehensive metabolic panel - 03/16/17 02:11 Serum or plasma sodium measurement (moles/volume) 138 mmol/L 135-145 Serum or plasma potassium measurement (moles/volume) 4.0 mmol/L 3.6-5.0 Serum or plasma chloride measurement (moles/volume) 103 mmol/L 98-107 Carbon dioxide 21 mmol/L 21-32 Serum or plasma anion gap determination (moles/volume) 14 mmol/L 5-14 Serum or plasma urea nitrogen measurement (mass/volume) 23 mg/dL 7-18 Serum or plasma creatinine measurement (mass/volume) 1.11 mg/dL 0.60-1.30 Serum or plasma urea nitrogen/creatinine mass ratio 21 NRG Serum or plasma creatinine measurement with calculation of estimated glomerular filtration rate > NRG Serum or plasma glucose measurement (mass/volume) 126 mg/dL 70-105 Serum or plasma calcium measurement (mass/volume) 10.1 mg/dL 8.5-10.1 Serum or plasma total bilirubin measurement (mass/volume) 0.6 mg/dL 0.1-1.0 Serum or plasma alkaline phosphatase measurement (enzymatic activity/volume) 75 U/L 40-136 Serum or plasma aspartate aminotransferase measurement (enzymatic activity/volume) 30 U/L 5-34 Serum or plasma alanine aminotransferase measurement (enzymatic activity/volume) 32 U/L 0-55 Serum or plasma protein measurement (mass/volume) 7.4 g/dL 6.4-8.2 Serum or plasma albumin measurement (mass/volume) 4.3 g/dL 3.2-4.5 Magnesium - 03/16/17 02:11 Magnesium 2.4 mg/dL 1.8-2.4 Serum or plasma troponin i.cardiac measurement (mass/volume) - 03/16/17 02:11 Serum or plasma troponin i.cardiac measurement (mass/volume) < ng/mL <0.30 Complete urinalysis with reflex to culture - 03/16/17 02:37 Urine color determination YELLOW NRG Urine clarity determination CLEAR NRG Urine pH measurement by test strip 6 5-9 Specific gravity of urine by test strip 1.015 1.016-1.022 Urine protein assay by test strip, semi-quantitative 2+ NEGATIVE Urine glucose detection by automated test strip NEGATIVE NEGATIVE Erythrocytes detection in urine sediment by light microscopy 1+ NEGATIVE Urine ketones detection by automated test strip NEGATIVE NEGATIVE Urine nitrite detection by test strip NEGATIVE NEGATIVE Urine total bilirubin detection by test strip NEGATIVE NEGATIVE Urine urobilinogen measurement by automated test strip (mass/volume) NORMAL NORMAL Urine leukocyte esterase detection by dipstick 1+ NEGATIVE Automated urine sediment erythrocyte count by microscopy (number/high power field) RARE NRG Automated urine sediment leukocyte count by microscopy (number/high power field) RARE NRG Bacteria detection in urine sediment by light microscopy TRACE NRG Squamous epithelial cells detection in urine sediment by light microscopy RARE NRG Crystals detection in urine sediment by light microscopy NONE NRG Casts detection in urine sediment by light microscopy PRESENT NRG Mucus detection in urine sediment by light microscopy SMALL NRG Complete urinalysis with reflex to culture NO NRG Hyaline casts detection in urine sediment by light microscopy 2-5 NRG Complete blood count (CBC) with automated white blood cell (WBC) differential - 04/21/17 17:05 Blood leukocytes automated count (number/volume) 8.2 10*3/uL 4.3-11.0 Blood erythrocytes automated count (number/volume) 4.14 10*6/uL 4.35-5.85 Venous blood hemoglobin measurement (mass/volume) 13.6 g/dL 13.3-17.7 Blood hematocrit (volume fraction) 40 % 40-54 Automated erythrocyte mean corpuscular volume 95 [foz_us] 80-99 Automated erythrocyte mean corpuscular hemoglobin (mass per erythrocyte) 33 pg 25-34 Automated erythrocyte mean corpuscular hemoglobin concentration measurement (mass/volume) 34 g/dL 32-36 Automated erythrocyte distribution width ratio 13.5 % 10.0- 14.5 Automated blood platelet count (count/volume) 201 10*3/uL 130-400 Automated blood platelet mean volume measurement 10.1 [foz_us] 7.4-10.4 Automated blood neutrophils/100 leukocytes 87 % 42-75 Automated blood lymphocytes/100 leukocytes 9 % 12-44 Blood monocytes/100 leukocytes 3 % 0-12 Automated blood eosinophils/100 leukocytes 0 % 0-10 Automated blood basophils/100 leukocytes 0 % 0-10 Blood neutrophils automated count (number/volume) 7.1 10*3 1.8-7.8 Blood lymphocytes automated count (number/volume) 0.8 10*3 1.0-4.0 Blood monocytes automated count (number/volume) 0.3 10*3 0.0- 1.0 Automated eosinophil count 0.0 10*3/uL 0.0-0.3 Automated blood basophil count (count/volume) 0.0 10*3/uL 0.0-0.1 Comprehensive metabolic panel - 04/21/17 17:05 Serum or plasma sodium measurement (moles/volume) 135 mmol/L 135-145 Serum or plasma potassium measurement (moles/volume) 4.6 mmol/L 3.6-5.0 Serum or plasma chloride measurement (moles/volume) 104 mmol/L 98-107 Carbon dioxide 19 mmol/L 21-32 Serum or plasma anion gap determination (moles/volume) 12 mmol/L 5-14 Serum or plasma urea nitrogen measurement (mass/volume) 23 mg/dL 7-18 Serum or plasma creatinine measurement (mass/volume) 1.03 mg/dL 0.60-1.30 Serum or plasma urea nitrogen/creatinine mass ratio 22 NRG Serum or plasma creatinine measurement with calculation of estimated glomerular filtration rate > NRG Serum or plasma glucose measurement (mass/volume) 118 mg/dL 70-105 Serum or plasma calcium measurement (mass/volume) 9.7 mg/dL 8.5-10.1 Serum or plasma total bilirubin measurement (mass/volume) 0.7 mg/dL 0.1-1.0 Serum or plasma alkaline phosphatase measurement (enzymatic activity/volume) 63 U/L 40-136 Serum or plasma aspartate aminotransferase measurement (enzymatic activity/volume) 30 U/L 5-34 Serum or plasma alanine aminotransferase measurement (enzymatic activity/volume) 32 U/L 0-55 Serum or plasma protein measurement (mass/volume) 6.8 g/dL 6.4-8.2 Serum or plasma albumin measurement (mass/volume) 4.2 g/dL 3.2-4.5 Blood manual differential performed detection - 04/21/17 17:05 Blood monocytes/100 leukocytes 6 % NRG Manual blood segmented neutrophils/100 leukocytes 87 % NRG Manual blood lymphocytes/100 leukocytes 7 % NRG Blood erythrocyte morphology finding identification NORMAL NRG Serum or plasma troponin i.cardiac measurement (mass/volume) - 04/21/17 17:05 Serum or plasma troponin i.cardiac measurement (mass/volume) < ng/mL <0.30 Serum or plasma troponin i.cardiac measurement (mass/volume) - 04/21/17 23:19 Serum or plasma troponin i.cardiac measurement (mass/volume) < ng/mL <0.30 PT panel in platelet poor plasma by coagulation assay - 04/22/17 09:56 Prothrombin time (PT) in platelet poor plasma by coagulation assay 12.8 s 12.2-14.7 INR in platelet poor plasma or blood by coagulation assay 1.0 0.8-1.4 Automated blood complete blood count (hemogram) panel - 04/23/17 04:34 Blood leukocytes automated count (number/volume) 6.1 10*3/uL 4.3-11.0 Blood erythrocytes automated count (number/volume) 4.01 10*6/uL 4.35-5.85 Venous blood hemoglobin measurement (mass/volume) 13.2 g/dL 13.3-17.7 Blood hematocrit (volume fraction) 39 % 40-54 Automated erythrocyte mean corpuscular volume 97 [foz_us] 80-99 Automated erythrocyte mean corpuscular hemoglobin (mass per erythrocyte) 33 pg 25-34 Automated erythrocyte mean corpuscular hemoglobin concentration measurement (mass/volume) 34 g/dL 32-36 Automated erythrocyte distribution width ratio 13.8 % 10.0- 14.5 Automated blood platelet count (count/volume) 170 10*3/uL 130-400 Automated blood platelet mean volume measurement 10.1 [foz_us] 7.4-10.4 Whole blood basic metabolic panel - 04/23/17 04:34 Serum or plasma sodium measurement (moles/volume) 140 mmol/L 135-145 Serum or plasma potassium measurement (moles/volume) 3.9 mmol/L 3.6-5.0 Serum or plasma chloride measurement (moles/volume) 108 mmol/L 98-107 Carbon dioxide 21 mmol/L 21-32 Serum or plasma anion gap determination (moles/volume) 11 mmol/L 5-14 Serum or plasma urea nitrogen measurement (mass/volume) 18 mg/dL 7-18 Serum or plasma creatinine measurement (mass/volume) 0.80 mg/dL 0.60-1.30 Serum or plasma urea nitrogen/creatinine mass ratio 23 NRG Serum or plasma creatinine measurement with calculation of estimated glomerular filtration rate > NRG Serum or plasma glucose measurement (mass/volume) 87 mg/dL 70-105 Serum or plasma calcium measurement (mass/volume) 9.1 mg/dL 8.5-10.1 Encounters ACCT No. Visit Date/Time Discharge Status Pt. Type Provider Facility Loc./Unit Complaint [id number] 10/31/2018 15:16:00 10/31/2018 23:59:59 CLS Outpatient KHLOE SMITH, EULOGIO Feliz [facility] REHAB BALANCE AND GAIT; [place] [id number] 04/21/2017 18:00:00 04/23/2017 13:45:00 DIS Outpatient CORRINE SAVAGE DO [facility] CATH CHEST PAIN [id number] 03/16/2017 01:53:00 03/16/2017 03:30:00 DIS Emergency MARY ANN POWERS MD [facility] ER SWEATING,LEG CRAMPS,LIGHT HEADED [id number] 04/03/2013 07:30:00 04/03/2013 14:04:00 DIS Outpatient BARBIE SMITH MD [facility] SDC LT TORN DISTAL TRICEPS [id number] 04/01/2013 12:24:00 04/01/2013 23:59:59 CLS Outpatient BARBIE SMITH MD [facility] PREOP LT TORN DISTAL TRICEP [id number] 01/02/2013 06:29:00 01/02/2013 11:05:00 DIS Outpatient [id number] 12/21/2012 08:03:00 12/21/2012 23:59:59 CLS Outpatient
--- OUTSIDE RECORDS SUMMARY | 2018-11-17 17:28 | XMS REPORT | Continuity of Care Document ---
Author Author [facility] Organization [facility] Address Unknown Phone Unavailable Care Team Providers Care Dinkey Locomotive Engineer Name Role Phone EULOGIO LEDBETTER MD PP Insurance Providers Payer Name Policy Number Subscriber Name Relationship Dmitriy Gutierrez [facility] [id number] Brittany Lombardo Jr 01 Self / Same As Patient Wps Medicare [id number] Brittany Lombardo Jr Self / Same As Patient Advance Directives Directive Response Recorded Date Advance Directives N 04/03/13 7:30am Health Care Power of Supervisor Stripping N 04/03/13 7:30am Organ Donor Y 04/03/13 7:30am Problems No Known Problems or Medical conditions. Allergies, Adverse Reactions, Alerts Allergen Type Severity Reaction Last Updated misoprostol Adverse Reaction Unknown 06/06/06 Codeine Allergy Severe 06/06/06 acetaminophen Allergy Severe 06/06/06 Diclofenac Adverse Reaction Unknown 06/06/06 Medications Medication Dose Units Route Sig Qty Days Acetaminophen/Hydrocodone Bitart (Lortab 7.5 Mg) 1 - 2 Ea PO Q 4 - 6 HR PRN [Cialis] 20 Mg PO DAILY PRN Sildenafil Citrate (Viagra) 100 Mg PO DAILY PRN Testosterone (Androgel) 1.25 Gm TOP DAILY Ubidecarenone (Coq-10) 100 Mg PO DAILY Cholecalciferol (Vitamin D3) (Vitamin D3) 2000 Unit PO DAILY Atorvastatin Calcium (Lipitor 10 Mg) 10 Mg PO DAILY Benazepril HCl (Lotensin 40 Mg) 40 Mg PO DAILY Omeprazole 20 Mg PO DAILY Aspirin (Aspirin 325 Mg Tab) 325 Mg PO DAILY Neomycn/Baci Zn/Pmyx Bs/Pramox (Neosporin + Pain Relief Oint) 28.3 Gm TP BID Cephalexin Monohydrate (Cephalexin) 1 Each PO BID 5 Cholecalciferol (Vitamin D3 Capsule) 5000 Unit GT DAILY Fish Oil 1000 Mg PO DAILY Immunizations Name Given Type Date of Pneumonia Vaccine 02/03/11 H Date of Influenza Vaccine 03/25/13 H Response Recorded Date/Time Status not known Unknown Results Test Date Result Interp. Ref. Range BUN/Creatinine Ratio June 02, 2006 11:05am 21 - Blood Urea Nitrogen June 02, 2006 11:05am 19 MG/DL H 7-18 Calcium Level June 02, 2006 11:05am 9.8 MG/DL N 8.5-10.1 Carbon Dioxide Level June 02, 2006 11:05am 30 MMOL/L N 21-32 Chloride Level June 02, 2006 11:05am 101 MMOL/L N 101-110 Creatinine June 02, 2006 11:05am 0.9 MG/DL N 0.6-1.3 D-Dimer October 23, 2008 3:25pm 0.38 UG/ML N 0.00-0.49 Glucose Level June 02, 2006 11:05am 95 MG/DL N 70-126 Potassium Level June 02, 2006 11:05am 4.1 MMOL/L N 3.6-5.0 Sodium Level June 02, 2006 11:05am 139 MMOL/L N 135-145 Troponin I April 30, 2012 12:35pm < 0.10 NG/ML 0.00-0.10 Procedures Procedure Code Date REMOVAL OF ELBOW BURSA [id number] 06/06/06 UPPER GI ENDOSCOPY BIOPSY [id number] 07/14/06 [place] CNCR SCR;COLNSCPY NO HI RSK [id number] 07/14/06 CIRCUM 28 DAYS OR OLDER [id number] 01/02/13 MRSA Screen 12/21/12
--- OUTSIDE RECORDS SUMMARY | 2018-11-17 17:28 | XMS REPORT | Continuity of Care Document ---
Author Author [facility] Organization [facility] Address Unknown Phone Unavailable Care Team Providers Care Occupational Health Nursing Director Name Role Phone EULOGIO LEDBETTER MD PP Insurance Providers Payer Name Policy Number Subscriber Name Relationship Dmitriy Gutierrez [facility] Supp [id number] Tala Lombardo 01 Self / Same As Patient Wps Medicare [id number] Brittany Lombardo Jr 01 Self / Same As Patient Advance Directives Directive Response Recorded Date Advance Directives N 01/02/13 6:00am Health Care Power of Obstetrical Nurse N 01/02/13 6:00am Organ Donor Y 01/02/13 6:00am Problems No Known Problems or Medical conditions. Allergies, Adverse Reactions, Alerts Allergen Type Severity Reaction Last Updated misoprostol Adverse Reaction Unknown 06/06/06 Codeine Allergy Severe 06/06/06 acetaminophen Allergy Severe 06/06/06 Diclofenac Adverse Reaction Unknown 06/06/06 Medications Medication Dose Units Route Sig Qty Days Neomycn/Baci Zn/Pmyx Bs/Pramox (Neosporin + Pain Relief Oint) 28.3 Gm TP BID Cephalexin Monohydrate (Cephalexin) 1 Each PO BID 5 Ubidecarenone (Coq-10) 30 Mg PO PER PACKAGE INSTR Atorvastatin Calcium (Lipitor 10 Mg) 1 Each PO DAILY Cholecalciferol (Vitamin D3 Capsule) 5000 Unit GT DAILY Benazepril HCl (Lotensin 40 Mg) 1 Each PO DAILY Omeprazole 1 Cap PO DAILY 30 Aspirin (Aspirin 325 Mg Tab) 325 Mg PO DAILY Fish Oil 1000 Mg PO DAILY Immunizations Name Given Type Date of Pneumonia Vaccine 02/03/11 H Response Recorded Date/Time Status not known [...] Procedure Code Date REMOVAL OF ELBOW [place] 19477 06/06/06 UPPER GI ENDOSCOPY BIOPSY 58655 07/14/06 [place] CNCR SCR;COLNSCPY NO IN RSK [id number] 07/14/06 MRSA Screen 12/21/12
--- NOTE | 2018-11-17 17:41 | ED Upper Extremity ---
General Chief Complaint: General Problems/Pain Stated Complaint: FEVER,NECK PAIN, RIGHT SHOULD PAIN Nursing Triage Note: ARRIVED VIA AMB TO TRIAGE WITH COMPLAINTS OF RIGHT SIDED NECK, SHOULDER PAIN FOR A COUPLE OF DAYS. THINKS HE IS HAVING A ARTHRITIS FLARE UP. ALSO STATES HE TOOK HIS TMEP ONCE AND IT WAS CLOSE TO 100. HAS A HX WITH THIS ISSUE. Nursing Sepsis Screen: No Definite Risk Source: patient Exam Limitations: no limitations History of Present Illness Date Seen by Provider: Nov 17, 2018 Time Seen by Provider: 17:35 Initial Comments This 78-year-old white male presents with a complaint of right shoulder pain for the last several days. They patient has had multiple similar joint pains in the past secondary to a flare of his degenerative arthritis. The patient is complaining of sharp pain made worse with shoulder motion. He denies loss of sensation or range of motion affected right upper extremity. He denies associated productive cough, shortness of breath, chest pain, palpitations, nausea or vomiting, or persistent fever. Next The patient is under the care of Dr. Eulogio Fonseca. Dr. Gallegos was treated these flares with a tapering dose of prednisone past very successfully. Allergies and Home Medications Allergies Coded Allergies: acetaminophen (Unverified Allergy, Severe, 06/06/06) codeine (Unverified Allergy, Severe, 06/06/06) diclofenac (Unverified Adverse Reaction, Unknown, 06/06/06) misoprostol (Unverified Adverse Reaction, Unknown, 06/06/06) Home Medications Aspirin 81 Mg Tablet., 81 MG PO DAILY, (Reported) Atorvastatin Calcium 40 Mg Tablet, 40 MG PO HS Prescribed by: Stephany JACKSON on 04/23/17 1144 Cholecalciferol (Vitamin D3) 2,000 Unit Capsule, 2,000 UNIT PO DAILY, (Reported) Doxycycline Hyclate 100 Mg Tablet, 100 MG PO BID Prescribed by: MARY ANN BALDERAS on 03/16/17 0325 Hydrocodone Bit/Acetaminophen 1 Ea Tablet, 1-2 EA PO Q 4 - 6 HR PRN, (Reported) Lisinopril 5 Mg Tablet, 5 MG PO DAILY Prescribed by: Stephany JACKSON on 04/23/17 1144 Metoprolol Tartrate 25 Mg Tablet, 25 MG PO BID Prescribed by: Stephany JACKSON on 04/23/17 1144 Omeprazole 20 Mg Capsule.dr, 20 MG PO DAILY, (Reported) Sildenafil Citrate 100 Mg Tablet, 100 MG PO DAILY PRN, (Reported) PRN ED Testosterone 1.25 Gm Gel.packet, 1.25 GM TOP DAILY, (Reported) Ticagrelor 90 Mg Tablet, 90 MG PO BID Prescribed by: Stephany JACKSON on 04/23/17 1144 Ubidecarenone 100 Mg Capsule, 100 MG PO DAILY, (Reported) [Cialis] , 20 MG PO DAILY PRN, (Reported) PRN ED Patient Home Medication List Home Medication List Reviewed: Yes Review of Systems Constitutional: No chills; fever EENTM: No no symptoms reported Respiratory: No cough, No short of breath Cardiovascular: No chest pain, No palpitations, No syncope Gastrointestinal: No abdominal pain, No nausea, No vomiting Genitourinary: no symptoms reported Musculoskeletal: No back pain; joint pain (right shoulder) Skin: No change in color, No rash Psychiatric/Neurological: No Symptoms Reported Past Bicvvnl-Tzwdgk-Dmrqnd Hx Past Med/Social Hx: Reviewed Nursing Past Med/Soc Hx Patient Social History Alcohol Use: Occasionally Uses Alcohol Beverage of Choice: Wine Recreational Drug Use: No Smoking Status: Never a Smoker Type Used: Cigars 2nd Hand Smoke Exposure: No Recent Foreign Travel: No Contact w/Someone Who Travel: No Recent Infectious Disease Expo: No Recent Hopitalizations: No Immunizations Up To Date Date of Pneumonia Vaccine: Feb 03, 2011 Date of Influenza Vaccine: Mar 25, 2013 Seasonal Allergies Seasonal Allergies: No Past Medical History Surgeries: Yes Orthopedic Respiratory: No Currently Using CPAP: No Currently Using BIPAP: No Cardiac: Yes Hypertension Neurological: No Genitourinary: No Gastrointestinal: Yes Hiatal Hernia Musculoskeletal: Yes Arthritis Endocrine: No HEENT: No Cancer: No Psychosocial: No Integumentary: No Blood Disorders: Yes Family Medical History Cardiovascular disease 19 MOTHER (chf) Hypertension 19 MOTHER Neoplasm 19 FATHER (intersticial lung disease) 19 MOTHER (thyroid ca) Psychosocial problem G8 BROTHER (schizophrenia) Physical Exam Vital Signs Vital Signs - First Documented 11/17/18 17:15 Temp 98.4 Pulse 77 Resp 16 B/P (MAP) 149/71 (97) Pulse Ox 94 O2 Delivery Room Air Capillary Refill : Less Than 3 Seconds Height, Weight, BMI Height: 5'9.00" Weight: 150lbs. 1.6oz. [id number]; 19.1 BMI Method:Stated General Appearance: WD/WN, no apparent distress HEENT: normal ENT inspection Neck: normal inspection Cardiovascular: regular rate, rhythm Respiratory: lungs clear Gastrointestinal: normal bowel sounds, non tender, soft Back: normal inspection Shoulder: limited ROM ( slightly diminished), pain (there is discomfort to palpation over the right shoulder. This is exacerbated by an active range of motion at the right shoulder. The patient's range of motion is), soft tissue tenderness Elbow/Forearm: normal inspection Wrist: Yes normal inspection Neurologic/Tendon: normal sensation, normal motor functions, normal tendon functions Neurologic/Psychiatric: no motor/sensory deficits, alert, normal mood/affect, oriented x 3 Progress/Results/Core Measures Results/Orders Vital Signs/I&O 11/17/18 17:15 Temp 98.4 Pulse 77 Resp 16 B/P (MAP) 149/71 (97) Pulse Ox 94 O2 Delivery Room Air Blood Pressure Mean: 97 Progress Progress Note : Time: 17:39 Progress Note Patient's presentation is most consistent with degenerative arthritis. I'll give the patient a tapering dose of prednisone and asked that he follow-up with his primary care physician on Monday. I advised the patient return if any further problems or questions. Departure Impression Primary Impression: Osteoarthritis of right shoulder Qualified Codes: M19.011 - Primary osteoarthritis, right shoulder Disposition: HOME, SELF-CARE Condition: Improved Departure-Patient Inst. Decision time for Depature: 17:41 Referrals: EULOGIO FONSECA MD (PCP/Family) Primary Care Physician Patient Instructions: Osteoarthritis Add. Discharge Instructions: Prednisone as prescribed. Close follow-up with Dr. Khris Mariano on Monday. Return if any problems or questions. All discharge instructions reviewed with patient and/or family. Voiced understanding. EULOGIO GUARDADO MD Nov 17, 2018 17:41
[2018-11-17 17:52] VITALS: BP 149/71
[2018-11-17] MEDS ORDERED: predniSONE 20 MG TAB ONE (17:52)
--- NOTE | 2018-11-17 17:55 | NUR ---
AFTER BEING DISCHARGED PT AT NURSES DESK REQUESTING FIRST DOSE OF PREDNISONE TO BE GIVEN HERE. DR NOTIFIED ET ORDER RECIEVED.
[2018-11-17] MEDS ORDERED: predniSONE 20 MG TAB PO ONE (18:00)
[2018-11-17] MEDS ORDERED: AMMONIA INHALATION 0.33 ML AMP ONE (20:55)
[2018-11-18] MEDS ORDERED: meTOproloL SUCCINATE 50 MG (TOPROL XL) TAB PO ONE (00:58)
== END 2018-11-17 17:52 | disposition home or self-care (01) ==
LOC: EDUNIT# 17:12 → ER 17:13
DX: M19.011 Primary osteoarthritis, right shoulder (principal); I10 Essential (primary) hypertension; Z88.5 Allergy status to narcotic agent; Z88.8 Allergy status to other drugs, medicaments and biological substances; Z79.82 Long term (current) use of aspirin; Z87.19 Personal history of other diseases of the digestive system; Z82.49 Family history of ischemic heart disease and other diseases of the circulatory system; Z80.8 Family history of malignant neoplasm of other organs or systems
CPT/HCPCS: 99281

== ENCOUNTER → 2020-05-26 | Outpatient (CLI) | payer MEDICARE ==
[~2020-05-26] VITALS: Ht 177 cm; Wt 68.0 kg
[~2020-05-26] MED LIST changes: +CATHETER FLUSH 10 ML SYR IV PRN; +REGADENOSON 0.4 MG/5 ML SYR (LEXISCAN) IV ONE
[2020-05-26 08:51] VITALS: BP 179/85
--- NOTE | 2020-05-27 10:34 | STRESS TEST ---
DATE OF SERVICE: 05/26/2020 RESTING AND POST REGADENOSON TECHNETIUM-99M TETROFOSMIN SPECT CT IMAGING ORDERING PHYSICIAN: Dr. Zhou. PRIMARY PHYSICIAN: Dr. Fonseca. CLINICAL DIAGNOSIS: Coronary artery disease. Baseline images were carried out after injection of 10.5 mCi of technetium-99m Tetrofosmin. This was followed by 0.4 mg of Regadenoson and 31 mCi of technetium-99m Tetrofosmin for stress imaging. The electrocardiogram showed sinus rhythm at baseline. It did not change significantly with the Regadenoson infusion. The patient noted headache, lightheadedness and an upset stomach following Regadenoson infusion, which resolved in a few minutes. Review of images at rest and following stress does not indicate any distinct perfusion defects consistent with significant myocardial ischemia or infarction. Gated images show normal global left ventricular systolic function with normal regional wall motion. Left ventricular ejection fraction is calculated to be 80%. Left ventricular end-diastolic volume is 42 mL. TID is absent (1.03). CONCLUSIONS: 1. No evidence of significant myocardial ischemia or infarction on this study. 2. Normal to hyperdynamic left ventricular systolic function with an ejection fraction of 80%. Job ID: [id number] DocumentID: [id number] Dictated Date: 05/27/2020 09:46:46 Circular Stuffer Date: 05/27/2020 10:33:51 Dictated By: SANDY ZHOU MD, MA, FACP, FACC,
== END ==
LOC: CARD 07:30
PROVIDERS: ATTEND Internal Medicine Cardiovascular Disease
DX: I25.10 Atherosclerotic heart disease of native coronary artery without angina pectoris (principal)
CPT/HCPCS: 78452; 93017; A9502

== ENCOUNTER → 2021-10-08 | Outpatient (CLI) | payer MEDICARE ==
[~2021-10-08] MED LIST changes: -CATHETER FLUSH 10 ML SYR IV PRN; -LISI-556 PO; +LISI5TAB20 PO; -REGADENOSON 0.4 MG/5 ML SYR (LEXISCAN) IV ONE
== END ==
LOC: CARD 13:12
PROVIDERS: ATTEND Nurse Practitioner Family
DX: I34.0 Nonrheumatic mitral (valve) insufficiency (principal); I51.7 Cardiomegaly
CPT/HCPCS: 93306

== ENCOUNTER 2022-05-02 15:01 | Outpatient (RCR) | payer MEDICARE | END 2022-05-04 | disposition home or self-care (01) | PROVIDERS: ATTEND Internal Medicine | DX: M17.11 Unilateral primary osteoarthritis, right knee (principal); I10 Essential (primary) hypertension ==

== ENCOUNTER 2022-05-27 11:21 | Outpatient (RCR) | payer MEDICARE | END 2022-06-04 | disposition home or self-care (01) | PROVIDERS: ATTEND Internal Medicine | DX: M17.11 Unilateral primary osteoarthritis, right knee (principal); I10 Essential (primary) hypertension ==

== ENCOUNTER 2022-06-28 16:00 | Outpatient (RCR) | payer MEDICARE | END 2022-06-28 16:36 | disposition home or self-care (01) | PROVIDERS: ATTEND Internal Medicine | DX: M17.11 Unilateral primary osteoarthritis, right knee (principal); I10 Essential (primary) hypertension ==